=== PATIENT | male | born 1960 | race Caucasian/White ===

== ENCOUNTER 2018-03-31 15:48 | Emergency (ER) | payer MEDICAID ==
[~2018-03-31] VITALS: Ht 165.1 cm; Wt 98.9 kg
[2018-03-31 15:55] VITALS: BP_SYST 107
--- NOTE | 2018-03-31 15:55 | NUR ---
Patient to ER bed 8 for evaluation. Side rails up.
--- NOTE | 2018-03-31 16:00 | NUR ---
Patient to ER via triage for evaluation of abdominal pain with diarrhea and fevers at home, afebrile in triage. Patient is awake, alert and oriented in no acute distress, vital signs stable, respirations even and unlabored, skin warm and dry to touch. EKG done and shows sinus rhythm/sinus tachycardia, EKG shown to Dr Castillo. Patient on nuclear monitoring technician showing sinus rhythm, patient on BP monitor and pulse oximeter. Awaiting evaluation by ER MD/MATH SPECIALIST, will continue to observe and assess.
--- NOTE | 2018-03-31 16:05 | NUR ---
FREDO Bentley at bedside examining patient.
[2018-03-31] MEDS ORDERED: NACL 0.9% 1,000 ML IV ONE (16:15)
[2018-03-31] MEDS ORDERED: ONDANSETRON HCL 4 MG/2 ML VIAL IVP ONE (16:15)
[2018-03-31 16:42] LABS: HEMATOCRIT 46.7 % (36-54); HEMOGLOBIN 15.6 g/dL (14.0-18.0); MEAN CORPUSCULAR HEMOGLOBIN 29 pg (27-31); MEAN CORPUSCULAR HGB CONC 33 % (32-36); MEAN CORPUSCULAR VOLUME 87 fL (79.0-98.0); PLATELET COUNT (AUTO) 222 K/uL (130-430); RED BLOOD CELL COUNT(AUTO) 5.39 MIL/uL (4.2-6.2); RED CELL DISTRIBUTION WIDTH 12.8 % (9.0-15.0); WHITE BLOOD COUNT (AUTO) 17.6 K/uL (4.8-10.8)
--- NOTE | 2018-03-31 16:45 | NUR ---
Patient resting quietly in no acute distress, no adverse reaction noted to medication.
[2018-03-31 16:48] LABS: CALCIUM 9.2 mg/dL (8.4-11.0); CREATININE 1.46 mg/dL (0.55-1.30); POTASSIUM 3.6 mmol/L (3.5-5.1)
[2018-03-31 16:53] LABS: ALBUMIN 3.6 g/dL (3.4-4.8); TOTAL BILIRUBIN 0.6 mg/dL (0.0-1.0)
--- NOTE | 2018-03-31 17:00 | NUR ---
Patient resting quietly in no acute distress, awaiting lab results and dispo. Patient unable to provide urine sample at this time. IV fluids infusing without difficulty, no redness or swelling noted at site.
--- NOTE | 2018-03-31 17:05 | NUR ---
Patient to CT scan in stable condition via gurney.
[2018-03-31] MEDS ORDERED: NACL 0.9% 2,000 ML IV ONE (17:15)
--- NOTE | 2018-03-31 17:15 | NUR ---
Patient returned from CT scan in stable condition via gurney. IV fluids infusing without difficulty, no redness or swelling noted at site. Bolus of 2000 ml hung, first 1000 ml completed. Patient tolerated well, awaiting dispo.
--- NOTE | 2018-03-31 17:35 | NUR ---
Medication reconciliation completed with information provided by patient. Any prior medication reconciliation on file was reviewed and corrected.
[2018-03-31] MEDS ORDERED: metroNIDAZOLE 500 MG TABLET PO ONE (17:45)
[2018-03-31 18:10] LABS: BILIRUBIN,URINE 1+ (NEGATIVE); BLOOD, URINE 1+ (NEGATIVE); GLUCOSE,URINE NEGATIVE (NEGATIVE); KETONES,URINE TRACE (NEGATIVE); LEUKOCYTE ESTERASE ,URINE NEGATIVE (NEGATIVE); NITRITE, URINE NEGATIVE (NEGATIVE); PH,URINE 5.5 (5.0-8.0); PROTEIN URINE 2+ (NEGATIVE)
[2018-03-31 18:17] LABS: BAND % (MANUAL) 26 % (0-6); BASOPHILS % (MANUAL) 0 % (0-2); EOSINOPHILS % (MANUAL) 0 % (0-7); LYMPHOCYTES % (MANUAL) 17 % (20-46); MONOCYTES % (MANUAL) 7 % (0-11)
[2018-03-31 18:18] LABS: CLARITY/URINE HAZY (CLEAR); COLOR,URINE AMBER (YELLOW)
[2018-03-31 18:24] LABS: BACTERIA,URINE MODERATE /HPF (None Seen); RBC,URINE 0-3 /HPF (0-3)
[2018-03-31 18:25] LABS: YEAST,URINE None Seen /HPF (None Seen)
[2018-03-31 18:26] LABS: COARSE GRANULAR CASTS,URINE 0-10 /LPF (None Seen); HYALINE CASTS, URINE 0-10 /LPF (None Seen); MUCUS,URINE 4+ /LPF (None Seen)
--- NOTE | 2018-03-31 18:30 | NUR ---
Patient resting quietly in no acute distress, awaiting dispo.
[2018-03-31 19:00] VITALS: BP_SYST 132
--- NOTE | 2018-03-31 19:00 | NUR ---
Patient given written and verbal discharge instructions and verbalizes understanding. ER MD discussed with patient the results and treatment provided. Patient in stable condition. ID arm band removed. IV catheter removed intact and dressing applied, no active bleeding. Rx of Cipro, Flagyl given. Patient educated on pain management and to follow up with PMD. Pain Scale 0. Opportunity for questions provided and answered. Medication side effect fact sheet provided. Patient left ER in no acute distress, ambulating without difficulty with slow, steady gait with spouse at his side who will drive patient home. No adverse reaction noted to medication. Aftercare instructions translated to patient by Val SHERMAN.
== END 2018-03-31 19:00 | disposition home or self-care (01) ==
LOC: SED 15:48
DX: T62.8X1A Toxic effect of other specified noxious substances eaten as food, accidental (unintentional), initial encounter (principal); K57.92 Diverticulitis of intestine, part unspecified, without perforation or abscess without bleeding; E78.00 Pure hypercholesterolemia, unspecified; Y92.89 Other specified places as the place of occurrence of the external cause
CPT/HCPCS: 36415; 74176; 80053; 81000; 83605; 84484; 85007; 85027; 87040; 87086; 93005; 96361; 96365; 96375; 99284; J1956; J2405; J7030

== ENCOUNTER 2024-02-02 20:13 | Emergency (ER) | payer OTHER, MEDICAID ==
[~2024-02-02] VITALS: Ht 165.1 cm; Wt 104.3 kg
[2024-02-02 20:23] VITALS: BP_SYST 191; PULSE 92; RESP 20; TEMP 96.2; O2SAT 96
[2024-02-02] MEDS: hydrALAZINE HCL 20 MG/ML VIAL IVP ONE (22:22)
[2024-02-02] MEDS: ONDANSETRON HCL 4 MG/2 ML VIAL IVP ONE (22:38)
[2024-02-03] MEDS: DIPHENHYDRAMINE INJ 50 MG/ML VIAL IVP ONE (00:30)
[2024-02-03] MEDS: HALOPERIDOL LACTATE 5 MG/ML VIAL IVP ONE (00:33)
[2024-02-03 00:54] LABS: BASOPHILS % (AUTO) 0.3 % (0.0-2.0); EOSINOPHILS # (AUTO) 0.1 K/uL (0.0-0.4); HEMATOCRIT 47.1 % (36-54); HEMOGLOBIN 15.9 g/dL (14.0-18.0); LYMPHOCYTES # (AUTO) 1.5 K/uL (1.0-5.5); LYMPHOCYTES % (AUTO) 19.8 % (20.5-51.5); MEAN CORPUSCULAR HEMOGLOBIN 30 pg (27-31); MEAN CORPUSCULAR HGB CONC 34 % (32-36); MEAN CORPUSCULAR VOLUME 87 fL (79.0-98.0); MONOCYTES # (AUTO) 0.9 K/uL (0.0-1.0); NEUTROPHILS # (AUTO) 5.3 K/uL (1.8-7.7); NEUTROPHILS % (AUTO) 67.9 % (40.0-70.0); PLATELET COUNT (AUTO) 217 K/uL (130-430); RED BLOOD CELL COUNT(AUTO) 5.38 MIL/uL (4.2-6.2); RED CELL DISTRIBUTION WIDTH 15.7 % (9.0-15.0); WHITE BLOOD COUNT (AUTO) 7.8 K/uL (4.8-10.8)
[2024-02-03 01:03] LABS: ALANINE AMINOTRANSFERASE 57 U/L (12-78); ALBUMIN 3.8 g/dL (3.4-4.8); ANION GAP 10 (5-15); ASPARTATE AMINOTRANSFERASE 32 U/L (10-37); BILIRUBIN,DIRECT 0.1 mg/dL (0.0-0.3); CALCIUM 9.4 mg/dL (8.4-11.0); CARBON DIOXIDE 29 mmol/L (23-29); CHLORIDE 102 mmol/L (98-107); CREATININE 1.17 mg/dL (0.55-1.30); GFR AFRICAN AMERICAN 81 mL/min (>90); GLUCOSE 111 mg/dL (74-106); SODIUM SERUM 141 mmol/L (136-145); TOTAL BILIRUBIN 0.4 mg/dL (0.0-1.0); TOTAL PROTEIN, SERUM 8.1 g/dL (6.4-8.3); UREA NITROGEN, BLOOD 19 mg/dL (8-21)
[2024-02-03 01:04] LABS: GFR NON AFRICAN-AMERICAN 67 mL/min (>90)
[2024-02-03] MEDS: LABETALOL HCL 20 MG/4 ML CARTRIDGE IVP ONE (01:31)
[2024-02-03] MEDS ORDERED: AMLO5TAB4 PO (01:47)
[2024-02-03] MEDS ORDERED: LISI1TAB57 PO (01:47)
[2024-02-03 02:00] VITALS: BP_SYST 143; PULSE 86; RESP 20; TEMP 99; O2SAT 95
== END 2024-02-03 02:00 | disposition home or self-care (01) ==
LOC: SED 20:13
DX: I10 Essential (primary) hypertension (principal); R11.2 Nausea with vomiting, unspecified; R51.9 Headache, unspecified; E78.00 Pure hypercholesterolemia, unspecified; Z76.0 Encounter for issue of repeat prescription; Z79.899 Other long term (current) drug therapy; Z79.2 Long term (current) use of antibiotics
CPT/HCPCS: 99285; 96374; 96375 ×2; 80076; 80048; 83880; 85025; 84484; 36415; 93005; J0360; J2405; J1200; J1630